=== PATIENT | female | born 1985 | race Caucasian/White ===

== ENCOUNTER 2024-12-04 09:32 | Emergency (ER) | payer BC, SELFPAY ==
[2024-12-04 09:33] VITALS: BMI 21.6
--- NOTE | 2024-12-04 09:37 | EKG_ITS ---
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
[2024-12-04 09:43] VITALS: BP 108/70; PULSE 62; RESP 16; TEMP 36.5; O2SAT 100; BMI 20.3
--- NOTE | 2024-12-04 09:56 | XR_ITS ---
Examination: PA lateral chest 2 views TECHNIQUE: Upright PA lateral chest 2 views Exam date and time: December 04, 2024 1005 hours INDICATIONS: Chest pain today FINDINGS: Normal heart size. Lungs are clear. Osseous structures are intact IMPRESSION: No active disease
[2024-12-04 10:49] LABS: Troponin I < 0.002 ng/mL (0.0-0.045)
[2024-12-04 10:51] LABS: HCG,Qualitative Serum Negative
--- NOTE | 2024-12-04 12:48 | EDNOTE_ITS ---
ED Chest Pain RME/HPI General Chief Complaint: Chest Pain Stated Complaint: CHEST PAIN Time Seen by Provider: 12/04/24 09:54 Arrival date/time: 12/04/24 09:32 39-year-old female with no significant medical problems presents the emergency department today for complaints of a generalized chest pain patient reports initially started on the right side but moved to the left side. Patient for symptoms ongoing intermittently for the last few days Limitations: no limitations Related Data Allergies Allergy/AdvReac Type Severity Reaction Status Date / Time No Known Allergies Allergy Verified 12/04/24 09:35 Review of Systems Review of Systems Systems Reviewed: All systems reviewed, normal except as documented Constitutional Constitutional: Reports system reviewed and no additional complaints, except as documented, Denies fever(s) and Denies headache(s) Eyes Eyes: Reports system reviewed and no additional complaints, except as documented and Denies blurry vision ENT Ears, Nose, Mouth, and Throat: Reports system reviewed and no additional complaints, except as documented, Denies headache(s), Denies nasal congestion and Denies nasal discharge Cardiovascular Cardiovascular: Reports system reviewed and no additional complaints, except as documented, Reports chest pain and Denies dyspnea Respiratory Respiratory: Reports system reviewed and no additional complaints, except as documented, Denies chest congestion, Denies cough and Denies dyspnea Gastrointestinal Gastrointestinal: Reports system reviewed and no additional complaints, except as documented and Denies abdominal pain Integumentary/Breasts Skin/Breast: Reports system reviewed and no additional complaints, except as documented and Denies rash Neurologic Neurologic: Reports system reviewed and no additional complaints, except as documented, Reports as per HPI and Denies headache(s) Past Medical History Social History SMOKING STATUS: Never smoker ED Exam General Limitations: Present no limitations General appearance: Present alert and in no apparent distress Head Head exam: Present atraumatic and normal inspection Eye Eye exam: Present normal appearance, PERRL and EOMI; Absent conjunctival injection ENT ENT exam: Present normal exam, normal oropharynx and mucous membranes moist Neck Neck exam: Present normal inspection, full ROM and trachea midline Chest Chest inspection: Present normal inspection and symmetric chest wall rise; Absent tenderness Respiratory Respiratory exam: Present normal lung sounds bilaterally; Absent respiratory distress or wheezes Cardiovascular Cardiovascular exam: Present regular rate, normal rhythm and normal heart sounds Abdominal Exam Abdominal exam: Present soft and normal bowel sounds Extremities Exam Extremities exam: Present normal inspection and full ROM Back Exam Back exam: Present normal inspection and full ROM Neurological Exam Neurological exam: Present alert, oriented X3 and CN II-XII intact Psychiatric Psychiatric exam: Present normal affect and normal mood Skin Skin exam: Present warm, dry, intact and normal color Course Quality Measures none Orders Category Date Time Status EKG (ED ONLY) *Do not use* NOW Care 12/04/24 09:37 Completed Consult to Cardiology Stat Cons 12/04/24 12:51 Ordered EKG (ED Only) Stat Exams 12/04/24 09:37 Draft XR chest 2V Stat Exams 12/04/24 09:56 Completed HCG,Qualitative Serum Stat Lab 12/04/24 10:22 Completed Troponin I Stat Lab 12/04/24 10:22 Completed Vital Signs Vital signs: Vital Signs Temperature 97.7 F 12/04/24 09:43 Pulse Rate 62 12/04/24 09:43 Respiratory Rate 16 12/04/24 09:43 Blood Pressure 108/70 12/04/24 09:43 Pulse Oximetry (%) 100 12/04/24 09:43 Oxygen Delivery Method Room Air 12/04/24 09:43 O2 saturation 100% room air within normal limits Procedures -ED EKG Interpretation #1: Date of EK12/04/24 Time of EK:47 Rate: 68 Interpretation: Interpreted by me EKG Impression: Normal sinus rhythm, No acute ST-T changes, No ectopy, No ischemic changes, Normal QRS, Normal intervals and Normal axis Chest Pain MDM Narrative MDM Narrative:: 39-year-old female with no significant medical problems presents the emergency department today for complaints of a generalized chest pain patient reports initially started on the right side but moved to the left side. Patient for symptoms ongoing intermittently for the last few days Lab work, chest x-ray, EKG obtained no acute emergent findings noted Consultation: Spoke with Dr. Berg chief security and safety officer who will follow-up with patient in outpatient basis Patient will follow-up with Dr. Berg on outpatient basis for worsening symptoms she will return immediately Patient data External records reviewed:: [facility] previous records Clinical information provided by:: patient Social determinants that could affect healthcare access:: none Patient has the following chronic illnesses:: None How is presenting disease/condition affected by chronic disease/condition?: no chronic disease Evaluation data The following diagnostics were reviewed and interpreted by me:: lab results, radiology exam(s) and EKG tracing(s) Lab and/or radiology exams considered but not ordered:: Labs, radiology, EKG obtained Interpretation Summary: Reviewed by me Medications / Prescriptions Medications or Prescriptions considered but not ordered:: No meds Medication administrations:: No criteria Consultations Consultation(s) initiated? (list below): Yes Consultation #1 (Physician, Specialty, Details): Dr. Berg Diagnosis Chest Pain Differential Diagnosis: fracture of rib, atypical chest pain, st elevation myocardial infarction and costochondritis Most likely diagnosis given after review of the tests above:: Chest pain Admission Indicated Admission indicated?: not indicated Admission Request Was there a request for admission?: No Disposition Plan Disposition Plan: Discharge Discharge Attestation Discharge Attestation: The patient and all family members were given an opportunity to ask questions and understood the discharge instructions. Discharge instructions specifically effects, indications for sooner follow up or return to the emergency department, and the expected course of current diagnosis. Patient condition: Stable Discharge Plan Plan Patient Disposition: HOME (Self Care) Disposition Comment: stable Prescriptions/Referrals Referrals: Rochelle De Dios FNP-C [Primary Care Provider] - 12/05/24 Problem List Clinical Impression: Atypical chest pain Patient/Caregiver Discharge Instructions Education Materials: ED Chest Pain, Noncardiac Additional Instructions: Please follow up with your primary care doctor in the next 24-48hrs for any worsening symptoms return here immediately Print Language: Indonesian Stand Alone Forms: Michell Award Info., Work/School Release, Patient Portal Info Letter CHUCKY/FREDDIE Supervising Physician CHUCKY/FREDDIE Supervising Physician: dr marcelo
== END 2024-12-04 11:01 | disposition home or self-care (01) ==
PROVIDERS: Nurse Practitioner Primary Care; Emergency Provider Emergency Medicine; PCP Nurse Practitioner Family
DX: R07.89 Other chest pain (principal)
CPT/HCPCS: 36415; 71046; 84484; 84703; 93005; 99283

== ENCOUNTER 2025-03-17 05:02 | Emergency (ER) | payer BC, SELFPAY ==
[2025-03-17 05:03] VITALS: BMI 22.8
[2025-03-17 05:17] VITALS: BP 102/69; PULSE 72; RESP 19; TEMP 36.6; O2SAT 98
--- NOTE | 2025-03-17 05:24 | XR_ITS ---
Examination: PA chest single view TECHNIQUE: Upright PA chest single view Date and time: March 17, 2025, 0552 hours Comparison December 04, 2024 INDICATIONS: Chest pain shortness of breath beginning 2 days ago. FINDINGS: Normal heart size. The lungs are clear. The osseous structures are intact IMPRESSION: No active disease
--- NOTE | 2025-03-17 05:25 | PD.EDRME ---
Rapid Medical Screening Exam RME Arrival date/time: 03/17/25 05:02 This is a case of 39-year-old female who came in the emergency room due to chest pain and shortness of breath for 1 day due to persistence of the symptoms test patient decided to start consult here in the emergency room Chief Complaint: Chest Pain Time Seen by Provider: 03/17/25 05:24 Vital signs: Vital Signs Temperature 97.9 F 03/17/25 05:17 Pulse Rate 72 03/17/25 05:17 Respiratory Rate 19 03/17/25 05:17 Blood Pressure 102/69 03/17/25 05:17 Pulse Oximetry (%) 98 03/17/25 05:17 Oxygen Delivery Method Room Air 03/17/25 05:17
[2025-03-17 06:28] LABS: Basophils # (Auto) 0.0 Thou/mm3 (0.0-0.2); Basophils % (Auto) 0 % (0-2.5); Eosinophils # (Auto) 0.1 Thou/mm3 (0.0-0.5); Eosinophils % (Auto) 1 % (0-10); Hematocrit 39.4 % (36.0-46.0); Hemoglobin 13.8 g/dL (12.0-16.0); Immature Granulocytes Auto 0.03 Thou/mm3 (0.00-0.00); Lymphocytes # (Auto) 2.4 Thou/mm3 (1.0-4.8); Lymphocytes % (Auto) 32 % (10-50); Mean Corpuscular HGB Conc 35.0 g/dl (31.0-37.0); Mean Corpuscular Hemoglobin 29.1 pg (25.0-35.0); Mean Corpuscular Volume 83 fL (80-100); Monocytes # (Auto) 0.5 Thou/mm3 (0.0-0.8); Monocytes % (Auto) 7 % (0-12); Neutrophils # (Auto) 4.4 Thou/mm3 (1.8-7.7); Neutrophils % (Auto) 59 % (37-80); Nucleated Red Blood Cell # 0.00 Thou/mm3 (0.00-0.00); Nucleated Red Blood Cell % 0 /100 WBC (0); Platelet Count 192 Thou/mm3 (140-440); RDW Standard Deviation 37.5 fL (36.4-46.3); Red Blood Count 4.75 Miln/mm3 (4.00-5.20); White Blood Count 7.4 Thou/mm3 (3.6-11.0)
[2025-03-17 06:45] LABS: Alanine Aminotransferase 30 U/L (10-49); Albumin, Serum 4.4 gm/dL (3.5-5.0); Albumin/Globulin Ratio 1.7 (1.2-2.2); Alkaline Phosphatase 75 U/L (46-116); Anion Gap 8 (7-16); Aspartate Amino Transferase 25 U/L (0-34); BUN/Creatinine Ratio 19 Ratio (12-20); Bilirubin,Total 0.6 mg/dL (0.3-1.2); Blood Urea Nitrogen 17 mg/dL (9-23); Calcium 9.6 mg/dL (8.3-10.6); Calcium (Corrected) 9.6 mg/dL (8.5-10.1); Carbon Dioxide 24.4 mMol/L (20.0-31.0); Chloride 109 mMol/L (98-107); Creatinine (Component) 0.9 mg/dL (0.6-1.3); Estimated Creatinine Clearance 75.5 mL/min (>60); Globulin 2.6 gm/dL (2.3-3.5); Glucose 97 mg/dL (74-106); Osmolality,Calculated 282 (275-295); Potassium 4.4 mMol/L (3.4-5.1); Sodium 141 mMol/L (136-145); Total Protein 7.0 gm/dL (5.7-8.2); Troponin I < 0.002 ng/mL (0.0-0.045); eGFR > 60 See Note
[2025-03-17 07:31] LABS: HCG,Qualitative Serum Negative
--- NOTE | 2025-03-17 07:55 | PD.EDCHEST ---
ED Chest Pain RME/HPI General Chief Complaint: Chest Pain Stated Complaint: CHEST PAIN Time Seen by Provider: 03/17/25 05:24 Arrival date/time: 03/17/25 05:02 Limitations: no limitations RME / HPI RME / HPI narrative: 03/17/25 05:02 This is a case of 39-year-old female who came in the emergency room due to chest pain and shortness of breath for 1 day due to persistence of the symptoms test patient decided to start consult here in the emergency room DR. LOPEZ MAIN ED EVALUATION: 39 year old female with no stated medical history presents to the ED for evaluation of left sided chest pain beginning 1 day ago. Described as sharp in sensation occurring intermittently since onset, rating 5/10 in severity. Pain aggravated with palpating the area and movements. No known modifying factors. Patient reports history of similar chest pain and was evaluated here 3 months ago where the work-up was unremarkable and discharged home. No other associated symptoms or complaints reported. Denies fevers, chills, sweats, cough, abdominal pain, n/v. MD complaint: chest pain Onset (ago): day(s) (one) Duration: intermittent Pain location: left chest Severity: moderate Quality: sharp Pain radiation: none Exacerbating factors: palpation and movement Related Data Allergies Allergy/AdvReac Type Severity Reaction Status Date / Time No Known Allergies Allergy Verified 03/17/25 05:09 Review of Systems Review of Systems Systems Reviewed: All systems reviewed, normal except as documented Past Medical History Social History SMOKING STATUS: Never smoker ED Exam General Limitations: Present no limitations General appearance: Present alert Head Head exam: Present atraumatic and normocephalic Eye Eye exam: Present normal appearance ENT ENT exam: Present normal exam Neck Neck exam: Present normal inspection Chest Chest inspection: Present normal inspection, symmetric chest wall rise and tenderness (Reproducible chest wall tenderness to palpation in the distribution of the left pectoralis major muscle) Respiratory Respiratory exam: Present normal lung sounds bilaterally; Absent respiratory distress, wheezes or accessory muscle use Cardiovascular Cardiovascular exam: Present regular rate Abdominal Exam Abdominal exam: Present soft and normal bowel sounds; Absent tenderness Course Quality Measures none Orders Category Date Time Status EKG (ED ONLY) *Do not use* NOW Care 03/17/25 05:24 Completed EKG (ED Only) Stat Exams 03/17/25 05:24 Ordered XR chest 1V portable Stat Exams 03/17/25 05:24 Completed CBC Stat Lab 03/17/25 06:10 Completed CMP [Comprehensive Metabolic Panel] Stat Lab 03/17/25 06:10 Completed HCG,Qualitative Serum Stat Lab 03/17/25 06:10 Completed Troponin I Stat Lab 03/17/25 06:10 Completed Vital Signs Vital signs: Vital Signs Temperature 97.9 F 03/17/25 05:17 Pulse Rate 72 03/17/25 05:17 Respiratory Rate 19 03/17/25 05:17 Blood Pressure 102/69 03/17/25 05:17 Pulse Oximetry (%) 98 03/17/25 05:17 Oxygen Delivery Method Room Air 03/17/25 05:17 Pulse ox is 98% on room air which is adequate. Chest Pain MDM Narrative MDM Narrative:: 39 year old female with no significant medical history presented to the ED with left-sided chest pain for 1 day. The pain is sharp, intermittent, and aggravated by palpation and movement. She has a similar history of chest pain 3 months ago, which was unremarkable. Labs performed including CBC, CMP, and Troponin are normal. Chest xray shows no acute abnormalities. Cardiac and pulmonary causes are unlikely. Patient has remained stable through ED course, will DC home with instructions to follow up with PMD. Patient data External records reviewed:: [facility] previous records (I reviewed ED visit on 12/04/2024 for chest pain ) Clinical information provided by:: patient Social determinants that could affect healthcare access:: none Patient has the following chronic illnesses:: None reported How is presenting disease/condition affected by chronic disease/condition?: no chronic disease Evaluation data The following diagnostics were reviewed and interpreted by me:: lab results and radiology exam(s) (chest xray ordered to help determine etiology of chest pain.) Lab and/or radiology exams considered but not ordered:: None Interpretation Summary: Ordering Physician: Leatha Donald Date of Service: 03/17/25 Procedure(s): XR chest 1V portable Accession Number(s): [id number] cc: Alessandro Muñoz MD; NO PRIMARY/FAMILY,PHYSICIAN; Leatha Donald~ Examination: PA chest single view TECHNIQUE: Upright PA chest single view Date and time: March 17, 2025, 0552 hours Comparison December 04, 2024 INDICATIONS: Chest pain shortness of breath beginning 2 days ago. FINDINGS: Normal heart size. The lungs are clear. The osseous structures are intact IMPRESSION: No active disease Dictated By: Alessandro Muñoz MD Signed By: <Electronically signed by Alessandro Muñoz MD in OV> 03/17/25 0626 Medications / Prescriptions Medications or Prescriptions considered but not ordered:: None Medication administrations:: None Consultations Consultation(s) initiated? (list below): No Diagnosis Chest Pain Differential Diagnosis: stable angina, atypical chest pain, costochondritis, chest pain, biliary colic and other (Musculoskeletal pain ) Most likely diagnosis given after review of the tests above:: Non-cardiac chest pain Admission Indicated Admission indicated?: not indicated Admission Request Was there a request for admission?: No Disposition Plan Disposition Plan: Discharge Discharge Attestation Discharge Attestation: The patient and all family members were given an opportunity to ask questions and understood the discharge instructions. Discharge instructions specifically effects, indications for sooner follow up or return to the emergency department, and the expected course of current diagnosis. Patient condition: Stable Discharge Plan Plan Patient Disposition: HOME (Self Care) Patient condition on transfer: Stable Prescriptions/Referrals Referrals: No Primary/Family,Physician [Primary Care Provider] - In 1 week Problem List Clinical Impression: Non-cardiac chest pain Patient/Caregiver Discharge Instructions Discharge Activity: activity as tolerated Education Materials: ED Chest Pain, Noncardiac Additional Instructions: Follow-up with your primary care doctor in 3 to 5 days for recheck. You can return to the emergency department sooner if symptoms worsen or if you notice any new, concerning issues. Print Language: Maltese Stand Alone Forms: Michell Award Info., Patient Portal Info Letter
== END 2025-03-17 08:15 | disposition home or self-care (01) ==
PROVIDERS: Nurse Practitioner Family; Emergency Provider Emergency Medicine
DX: R07.89 Other chest pain (principal)
CPT/HCPCS: 36415; 71045; 80053; 84484; 84703; 85025; 93005; 99283

== ENCOUNTER 2025-06-28 11:52 | Day surgery (SDC) | payer BC, SELFPAY ==
[2025-06-27 13:23] LABS: HCG Qualitative,Urine Negative
[2025-06-27 14:15] VITALS: BMI 21.6
[2025-06-28] VITALS (7 sets, daily range): BP systolic 102–116; BP diastolic 64–76; PULSE 60–70; RESP 13–20; TEMP 36.4–37.2; O2SAT 97–100
== END 2025-06-28 14:35 | disposition home or self-care (01) ==
PROVIDERS: PCP Nurse Practitioner Family; Referring Provider Specialist; Visit Provider Specialist
PROC: (CPT 43239; principal; 2025-06-28 12:15)
DX: K29.50 Unspecified chronic gastritis without bleeding (principal); K20.90 Esophagitis, unspecified without bleeding
CPT/HCPCS: 43239; 81025; A4217; A4649